=== PATIENT | male | born 1985 | race Caucasian/White ===

== ENCOUNTER 2022-07-19 08:05 | Outpatient (CLI) | payer OTHER | END 2022-07-19 08:06 | disposition home or self-care (01) | LOC: CSHMRI 08:05 | PROVIDERS: ATTEND Nurse Practitioner Family | DX: S83.92XD Sprain of unspecified site of left knee, subsequent encounter (principal); Z98.890 Other specified postprocedural states; M24.662 Ankylosis, left knee; R93.6 Abnormal findings on diagnostic imaging of limbs ==